=== PATIENT | female | born 1955 | race Caucasian/White ===

== ENCOUNTER 2021-05-25 10:06 | Outpatient (REF) | payer MEDICAID, SELFPAY ==
[2021-05-25 10:54] LABS: COVID-19 Test Negative (Negative)
== END 2021-05-25 10:07 | disposition home or self-care (01) ==
LOC: HO.LAB 10:06
PROVIDERS: PCP Family Medicine; Visit Provider Internal Medicine
DX: Z20.822 Contact with and (suspected) exposure to COVID-19 (principal)
CPT/HCPCS: 36415; 87635; C9803